=== PATIENT | male | born 1960 | race Two or more races ===

== ENCOUNTER 2018-04-07 08:52 | Outpatient (CLI) | payer OTHER ==
[~2018-04-07 08:52] MED LIST: ECONOPRED PLUS10 ML; GLUCOVANCE 5/501 TAB; INTAL; PROVENTIL2 MG; PULMICORT1 MG/2 ML; THEOPHYLLINE600 MG
== END 2018-04-07 08:56 | disposition home or self-care (01) ==
LOC: TOM 08:52
DX: J90 Pleural effusion, not elsewhere classified (principal)
CPT/HCPCS: 71260; Q9965

== ENCOUNTER → 2018-04-27 | Outpatient (CLI) | payer OTHER | END | disposition home or self-care (01) | LOC: NUCLEAR 07:24 | DX: I27.29 Other secondary pulmonary hypertension (principal); I50.32 Chronic diastolic (congestive) heart failure; R06.09 Other forms of dyspnea; I25.10 Atherosclerotic heart disease of native coronary artery without angina pectoris ==

== ENCOUNTER 2018-07-29 07:22 | Outpatient (CLI) | payer OTHER | END 2018-07-29 08:23 | disposition home or self-care (01) | LOC: NUCLEAR 07:22 | DX: R55 Syncope and collapse (principal); I25.10 Atherosclerotic heart disease of native coronary artery without angina pectoris; I73.9 Peripheral vascular disease, unspecified ==

== ENCOUNTER 2018-12-10 07:03 | Outpatient (CLI) | payer OTHER | END 2018-12-10 07:17 | disposition home or self-care (01) | LOC: MRI 07:03 | DX: R25.1 Tremor, unspecified (principal) | CPT/HCPCS: 70551 ==

== ENCOUNTER 2019-03-17 07:12 | Outpatient (CLI) | payer OTHER | END 2019-03-17 07:20 | disposition home or self-care (01) | LOC: NUCLEAR 07:12 | DX: I25.10 Atherosclerotic heart disease of native coronary artery without angina pectoris (principal); I20.9 Angina pectoris, unspecified; I10 Essential (primary) hypertension | CPT/HCPCS: 78452; 93017; A9500; J0153 ==

== ENCOUNTER 2020-07-19 07:12 | Outpatient (CLI) | payer OTHER | END 2020-07-19 07:29 | disposition home or self-care (01) | LOC: NUCLEAR 07:12 | PROVIDERS: ATTEND Internal Medicine Cardiovascular Disease | DX: I11.9 Hypertensive heart disease without heart failure (principal); I25.10 Atherosclerotic heart disease of native coronary artery without angina pectoris; R94.31 Abnormal electrocardiogram [ECG] [EKG] | CPT/HCPCS: 78452; 93017; A9500; J1250 ==

== ENCOUNTER 2021-06-11 09:18 | Outpatient (CLI) | payer OTHER | END 2021-06-11 09:19 | disposition home or self-care (01) | LOC: NUCLEAR 09:18 | PROVIDERS: ATTEND Internal Medicine Cardiovascular Disease | DX: I73.89 Other specified peripheral vascular diseases (principal); I73.9 Peripheral vascular disease, unspecified ==

== ENCOUNTER 2021-06-12 07:22 | Outpatient (CLI) | payer OTHER | END 2021-06-12 07:23 | disposition home or self-care (01) | LOC: NUCLEAR 07:22 | PROVIDERS: ATTEND Internal Medicine Cardiovascular Disease | DX: I82.493 Acute embolism and thrombosis of other specified deep vein of lower extremity, bilateral (principal) ==

== ENCOUNTER 2021-07-04 09:00 | Outpatient (CLI) | payer OTHER | END 2021-07-04 09:04 | disposition home or self-care (01) | LOC: NUCLEAR 09:00 | DX: R09.89 Other specified symptoms and signs involving the circulatory and respiratory systems (principal) ==

== ENCOUNTER 2022-01-23 08:56 | Outpatient (CLI) | payer OTHER | END 2022-01-23 08:58 | disposition home or self-care (01) | LOC: NUCLEAR 08:56 | DX: I87.2 Venous insufficiency (chronic) (peripheral) (principal) ==

== ENCOUNTER → 2022-01-29 08:04 | Outpatient (CLI) | payer OTHER | END | disposition home or self-care (01) | LOC: NUCLEAR 08:00 | DX: I87.2 Venous insufficiency (chronic) (peripheral) (principal) ==

== ENCOUNTER 2022-03-04 08:34 | Outpatient (CLI) | payer OTHER | END 2022-03-04 08:36 | disposition home or self-care (01) | LOC: RX STUDY 08:34 | DX: R13.12 Dysphagia, oropharyngeal phase (principal); R14.1 Gas pain; D50.9 Iron deficiency anemia, unspecified ==